=== PATIENT | male | born 1965 | race African-American/Black ===

== ENCOUNTER 2017-12-13 11:52 | Emergency (ER) | payer OTHER ==
[2017-12-13 12:04] VITALS: RESP 18; TEMP 98.6
--- NOTE | 2017-12-13 12:29 | ED ---
Wound/Laceration HPI - General Chief Complaint: Wound/Laceration Stated Complaint: 3 foot fall resulting in head laceration Source: patient, RN notes reviewed, old records reviewed Mode of arrival: ambulatory Limitations: no limitations - History of Present Illness Initial Comments: This patient's 52-year-old male presents emergency department today with chief complaint of falling from a 3 foot scaffolding bladder. Patient reports that the pain was not appropriately placed within the ladder and caused the leg to fall. Patient reports he fell backward and hit his head on a metal wrench. Patient states that he has a laceration over the back of the scalp. They initially poured peroxide over the area and wrapped with a pressure dressing. Patient states he had no loss of consciousness. He states his neck is mildly sore but denies any significant pain or tenderness over the spine. Patient states that he was able to ambulate without difficulty. Patient states that his tetanus vaccine is up-to-date. He denies any peripheral paresthesias, nausea, vomiting, chest pain, shortness of breath, abdominal pain, or back pain. - Related Data Home Medications Medication Instructions Recorded Confirmed No Known Home Medications 12/13/17 12/13/17 Allergies Allergy/AdvReac Type Severity Reaction Status Date / Time No Known Allergies Allergy Verified 12/13/17 12:04 Review of Systems ROS Statement: Those systems with pertinent positive or pertinent negative responses have been documented in the HPI. ROS Other: All systems not noted in ROS Statement are negative. Past Medical History Past Medical History: No Reported History History of Any Multi-Drug Resistant Organisms: None Reported Additional Past Surgical History / Comment(s): rt elbow surgery Past Psychological History: No Psychological Hx Reported Smoking Status: Current every day smoker Past Alcohol Use History: Daily, Heavy Past Drug Use History: Marijuana General Exam - General Exam Comments Initial Comments: This patient's a 52-year-old male. Alert and oriented. No significant distress. Limitations: no limitations General appearance: alert, in no apparent distress Head exam: Present: normocephalic, normal inspection. Absent: atraumatic ( Patient has a 3 cm hematoma over the occipital scalp. It is L-shaped laceration measuring approximately 3 cm. Bleeding well controlled.) Eye exam: Present: normal appearance, PERRL, EOMI. Absent: scleral icterus, conjunctival injection, periorbital swelling ENT exam: Present: normal exam, mucous membranes moist, TM's normal bilaterally Neck exam: Present: normal inspection. Absent: tenderness, meningismus, lymphadenopathy Respiratory exam: Present: normal lung sounds bilaterally. Absent: respiratory distress, wheezes, rales, rhonchi, stridor Cardiovascular Exam: Present: regular rate GI/Abdominal exam: Present: soft, normal bowel sounds. Absent: distended, tenderness, guarding, rebound, rigid Extremities exam: Present: normal inspection, full ROM, normal capillary refill. Absent: tenderness, pedal edema, joint swelling, calf tenderness Back exam: Present: normal inspection Neurological exam: Present: alert, oriented X3, CN II-XII intact Psychiatric exam: Present: normal affect, normal mood Skin exam: Present: warm, dry, intact, normal color. Absent: rash Course Vital Signs 12/13/17 12:01 Temperature 98.6 F Pulse Rate 96 Respiratory 18 Rate Blood Pressure 152/100 O2 Sat by Pulse 97 Oximetry Procedures - Laceration Laceration #1 Site: scalp Size (cm): 3 Description: irregular Depth: simple, single layer Anesthetic Used: lidocaine 1% Anesthesia Technique: local infiltration Amount (mls): 3 Pre-repair: wound explored, irrigated extensively Type of Sutures: other (diogo) Size of Sutures: other Number of Sutures: 3 Patient Tolerated Procedure: well, no complications Medical Decision Making - Medical Decision Making 52-year-old male presents emergency Department after falling off of scaffolding. Patient ports to 3 feet high and hit the back of his head on a bench. Patient is not on blood thinners. He has a irregular 3cm laceration over the back the scalp. Bleeding is well-controlled. CAT scan of the brain and neck was completed and negative for any acute process. Patient is alert and oriented. Patient is wound was cleaned. 3 diogo placed to close laceration. I discussed head injury instructions. Discussed return parameters including altered mental status, vomiting or any other abnormal symptoms. Patient understands treatment plan will comply. Return parameters were discussed. - Radiology Data Radiology results: report reviewed No acute intracranial abnormality. Mild chronic sinus mucosal disease noted. No acute osseous lesion. Is under changes noted. Disposition Clinical Impression: Scalp laceration, Concussion Disposition: HOME SELF-CARE Condition: Good Instructions: Concussion (ED), Staple Care (ED) Additional Instructions: Please return to the emergency room in 7 to 10 days to have diogo removed. Please leave wound covered for the first 24-48 hours and then leave open to air after that time. Please use clean soap and water to clean the suture area to prevent scabbing over the top of your diogo. Please watch for any signs of infection which may include but not limited to increased pain, swelling, redness , fever or chills. Please return to the emergency room if any signs of infection do occur. Please return to the emergency room for any other concerns or complications. Is patient prescribed a controlled substance at d/c from ED?: No Referrals: Patience Robb MD [Primary Care Provider] - 1-2 days Time of Disposition: 13:13
--- NOTE | 2017-12-13 12:53 | CT ---
EXAMINATION TYPE: CT brain sarath forrester DATE OF EXAM: 12/13/2017 COMPARISON: NONE HISTORY: posterior head laceration after fall CT DLP: 1744 mGycm Automated exposure control for dose reduction was used. TECHNIQUE: CT scan of the head and cervical spine are performed without contrast. FINDINGS: BRAIN: Central structures are midline. There is no evidence of hydrocephalus. No acute focal lesion, mass effect or midline shift is seen. I do not see evidence of intracranial blood. There is mucoperiosteal thickening involving the left maxillary sinus. The remainder the paranasal si nuses and mastoids are clear. There is some underaeration of the right-sided mastoids. The bony vero rium is intact. IMPRESSION: 1. NO ACUTE INTRACRANIAL ABNORMALITY. 2. MILD, CHRONIC SINUS MUCOSAL DISEASE. CERVICAL SPINE: Visualized portions of the lungs are clear. Prevertebral soft tissues are normal. There is straightening of the normal cervical lordosis. Alignment is maintained. Atlantoaxial relatio nships are normal. There is degenerative disc disease and hypertrophic spondylosis throughout the cervical spine with re lative sparing of C2-3. There is uncovertebral joint disease most marked at C5-6. The facets are reas onably well-maintained. No discal protrusion is seen. No fracture is evident. IMPRESSION: 1. NO ACUTE OSSEOUS LESION. 2. DEGENERATIVE CHANGE.
[2017-12-13] MEDS ORDERED: IBUPROFEN 600 MG STARTER PACK 4 TAB BTL PO STA (13:11)
[2017-12-13] MEDS ORDERED: ACETAMINOPHEN TAB 500 MG TAB PO STA (13:11)
[2017-12-13 13:27] VITALS: BP 158/88; PULSE 91
== END 2017-12-13 13:25 | disposition home or self-care (01) ==
LOC: EC 11:52
DX: S06.0X0A Concussion without loss of consciousness, initial encounter (principal); S01.01XA Laceration without foreign body of scalp, initial encounter; F17.200 Nicotine dependence, unspecified, uncomplicated; W11.XXXA Fall on and from ladder, initial encounter; W22.8XXA Striking against or struck by other objects, initial encounter; Y92.89 Other specified places as the place of occurrence of the external cause
CPT/HCPCS: 12002; 70450; 72125; 99284

== ENCOUNTER 2021-11-28 15:01 | Observation (INO) | payer OTHER ==
[2021-11-28 15:42] LABS: Basophils # (A) 0.1 k/uL (0-0.2); Basophils % (A) 1 %; Eosinophils # (A) 0.3 k/uL (0-0.7); Eosinophils % (A) 4 %; HCT 44.1 % (39.0-53.0); HGB 14.1 gm/dL (13.0-17.5); Lymphocytes # (A) 1.6 k/uL (1.0-4.8); Lymphocytes % (A) 26 %; MCH 29.8 pg (25.0-35.0); MCV 93.2 fL (80.0-100.0); Mean Platelet Volume 7.2; Monocytes # (A) 0.3 k/uL (0-1.0); Monocytes % (A) 6 %; Neutrophils # (A) 3.7 k/uL (1.3-7.7); Neutrophils % (A) 62 %; Platelet Count 310 k/uL (150-450); RBC 4.73 m/uL (4.30-5.90); RDW 13.8 % (11.5-15.5)
[2021-11-28 15:55] LABS: Albumin 3.7 g/dL (3.5-5.0); Calcium 9.7 mg/dL (8.4-10.2); INR 0.9 (<1.2); Partial Thromboplastin Time 22.7 sec (22.0-30.0); Potassium 4.3 mmol/L (3.5-5.1); Prothrombin Time 10.3 sec (9.0-12.0); Total Bilirubin 0.2 mg/dL (0.2-1.3); Total Protein 6.2 g/dL (6.3-8.2)
--- NOTE | 2021-11-28 15:56 | XR ---
EXAMINATION TYPE: XR chest 2V DATE OF EXAM: 11/28/2021 COMPARISON: NONE TECHNIQUE: PA and lateral views submitted. HISTORY: Chest pain FINDINGS: The lungs are clear and there is no pneumothorax, pleural effusion, or focal pneumonia. Heart size normal. Degenerative changes spine. Mild hyperinflation. Arthropathy of the shoulders. IMPRESSION: 1. No acute process. Correlate for COPD.
--- NOTE | 2021-11-28 20:02 | ED ---
Chest Pain HPI - General Chief Complaint: Chest Pain Stated Complaint: Chest Pain Time Seen by Provider: 11/28/21 20:40 Source: patient Mode of arrival: ambulatory Limitations: no limitations - History of Present Illness Initial Comments: 56-year-old male with past medical history of daily alcohol use, tobacco abuse presents emergency room for chest pain and muscle spasms. Patient states that he has been having right-sided chest wall pain with cramping and numbness that goes into both of his upper extremities into his back. His any previous history of cardiac disease. Does admit to alcohol and tobacco abuse. He has never had a cardiac workup. He denies fevers, chills or cough. No ripping or tearing sensation to his back. He denies any numbness or tingling into his legs. No other alleviating, precipitating or modifying factors - Related Data Home Medications Medication Instructions Recorded Confirmed amLODIPine [Norvasc] 10 mg PO DAILY 11/28/21 11/28/21 Previous Rx's Medication Instructions Recorded Cyclobenzaprine [Flexeril] 5 mg PO TID PRN #30 tablet 11/30/21 Allergies Allergy/AdvReac Type Severity Reaction Status Date / Time No Known Allergies Allergy Verified 11/28/21 20:05 Review of Systems ROS Statement: Those systems with pertinent positive or pertinent negative responses have been documented in the HPI. ROS Other: All systems not noted in ROS Statement are negative. EKG Findings - EKG Comments: EKG Findings:: EKG demonstrates a sinus rhythm with a ventricular rate of 83. DC interval 162. QRS 84. QTC 377. No acute ST segment elevations or depressions Past Medical History Past Medical History: No Reported History History of Any Multi-Drug Resistant Organisms: None Reported Additional Past Surgical History / Comment(s): rt elbow surgery Past Psychological History: No Psychological Hx Reported Smoking Status: Current every day smoker Past Alcohol Use History: Daily, Heavy Past Drug Use History: Marijuana - Past Family History Father Family Medical History: Myocardial Infarction ([place]) Additional Family Medical History / Comment(s): Father of a [place] at the age of 62 or 63 yrs. Mother Family Medical History: Cancer Additional Family Medical History / Comment(s): Mother at 57yrs from a rare type cancer. Family Family Medical History: Coronary Artery Disease (CAD) General Exam Limitations: no limitations General appearance: alert, in no apparent distress Head exam: Present: atraumatic, normocephalic, normal inspection Eye exam: Present: normal appearance, PERRL, EOMI. Absent: scleral icterus, conjunctival injection, periorbital swelling ENT exam: Present: normal exam, mucous membranes moist Neck exam: Present: normal inspection. Absent: tenderness, meningismus, lymphadenopathy Respiratory exam: Present: normal lung sounds bilaterally. Absent: respiratory distress, wheezes, rales, rhonchi, stridor Cardiovascular Exam: Present: regular rate, normal rhythm, normal heart sounds. Absent: systolic murmur, diastolic murmur, rubs, gallop, clicks GI/Abdominal exam: Present: soft, normal bowel sounds. Absent: distended, tenderness, guarding, rebound, rigid Extremities exam: Present: normal inspection, full ROM, normal capillary refill. Absent: tenderness, pedal edema, joint swelling, calf tenderness Back exam: Present: normal inspection Neurological exam: Present: alert, oriented X3, CN II-XII intact Psychiatric exam: Present: normal affect, normal mood Skin exam: Present: warm, dry, intact, normal color. Absent: rash Course Vital Signs 11/28/21 11/28/21 11/28/21 15:07 19:54 21:00 Temperature 98.5 F Pulse Rate 95 83 63 Respiratory 20 16 16 Rate Blood Pressure 134/81 157/103 164/83 O2 Sat by Pulse 99 98 98 Oximetry 11/28/21 11/29/21 11/29/21 23:00 01:00 09:18 Temperature 98.4 F Pulse Rate 83 64 66 Respiratory 16 16 18 Rate Blood Pressure 118/70 113/78 O2 Sat by Pulse 98 98 Oximetry 11/29/21 11/29/21 11/29/21 09:22 10:00 10:28 Temperature 98.1 F Pulse Rate 71 71 64 Respiratory 18 18 18 Rate Blood Pressure 114/62 114/62 134/74 O2 Sat by Pulse 96 98 99 Oximetry 11/29/21 11/29/21 11/29/21 13:00 15:00 16:00 Temperature 98.6 F 98.4 F Pulse Rate 90 66 68 Respiratory 18 18 18 Rate Blood Pressure 124/80 103/50 107/88 O2 Sat by Pulse 99 98 100 Oximetry Chest Pain MDM - MDM Upon arrival patient is placed into room 2. Thorough history and physical exam was performed. IV access was established laboratory studies were conducted. 12-lead EKG was performed. Results are discussed with the patient. Did recommend overnight observation for which the patient did agree to. Called and spoke with Dr. Bueno who agreed to admit the patient. Disposition Clinical Impression: Chest pain Disposition: ADMITTED IP TO THIS HOSP Condition: Stable Is patient prescribed a controlled substance at d/c from ED?: No Time of Disposition: 20:47 Decision to Admit Reason: Admit from EC Decision Date: 11/28/21 Decision Time: 20:47
[2021-11-28] MEDS ORDERED: ASPIRIN 81 MG PO STA (20:46)
[2021-11-28] MEDS ORDERED: NALOXONE 0.4 MG/ML 1 ML VIAL IV PRN (20:47)
[2021-11-29] MEDS ORDERED: IPRATROPIUM-ALBUTEROL 3 ML NEB INHALATION PRN (04:21)
--- NOTE | 2021-11-29 04:28 | P.HPIM ---
History of Present Illness H&P Date: 11/28/21 Chief Complaint: chest pain 56 year old male with no significant past medical history patient comes in with complaint of right sided chest pain assciated with cramping of his bilateral upper extremities and right side of his chest , no associated profuse sweating, dizziness, nausea or vomiting, no difficulty breathing, no recent URI, no abd pain, no changes in urinary or bowel habits. he has never had cardiac workup . he is concerned now as this has been going on for couple weeks, and becoming more frequent episodes , sometimes happens at work where he has to stop. he works in hanging [employer]. he denies any recent travel or hospital stay , he has poor OP follow up , and has no past medical history he admits to tobacco smoking, marijuana and alcohol . he reports strong family history of CAD. Review of Systems Pertinent positives as noted in HPI. All other systems were reviewed and are negative Past Medical History Past Medical History: No Reported History History of Any Multi-Drug Resistant Organisms: None Reported Additional Past Surgical History / Comment(s): rt elbow surgery Past Psychological History: No Psychological Hx Reported Smoking Status: Current every day smoker Past Alcohol Use History: Daily, Heavy Past Drug Use History: Marijuana - Past Family History Family Family Medical History: Coronary Artery Disease (CAD) Medications and Allergies Home Medications Medication Instructions Recorded Confirmed Type amLODIPine [Norvasc] 10 mg PO DAILY 11/28/21 11/28/21 History Allergies Allergy/AdvReac Type Severity Reaction Status Date / Time No Known Allergies Allergy Verified 11/28/21 20:05 Physical Exam Vitals: Vital Signs Temp Pulse Resp BP Pulse Ox 11/28/21 19:54 83 16 157/103 98 11/28/21 15:07 98.5 F 95 20 134/81 99 Intake and Output 11/28/21 11/28/21 11/28/21 06:59 14:59 22:59 Other: Weight 112.037 kg Constitutional: No acute distress, conversant, pleasant Eyes: Anicteric sclerae, moist conjunctiva, Pupils equal round reactive to light ENMT: NC/AT Oropharynx clear, no erythema, or exudates Neck: Supple, no masses, or JVD No carotid bruits No thyromegaly Lungs: good breath sounds bilaterally with end-expiratory wheezing Clear to percussion Normal respiratory effort, no accessory muscle use Cardiovascular: Heart regular in rate and rhythm, No murmurs, gallops, or rubs No peripheral edema Abdominal: Soft Nontender, no guarding, rebound or rigidity Abdomen moving with respiration Normoactive bowel sounds No hepatomegaly, No splenomegaly No palpable mass No abdominal wall hernia noted Skin: Normal temperature, tone, texture, turgor No induration No subcutaneous nodules No rash, lesions No ulcers Extremities: No digital cyanosis No clubbing Pedal pulses intact and symmetrical Radial pulses intact and symmetrical No calf tenderness Psychiatric: Alert and oriented to person, place and time Appropriate affect fair judgement Neuro Muscles Strength 5/5 in all 4 extremities Sensation to light touch grossly present throughout Cranial nerves II-XII grossly intact No focal sensory deficits Lymphatics: no palpable cervical or supraclavicular , or inguinal lymph nodes Results CBC & Chem 7: 11/28/21 15:30 11/28/21 15:30 Labs: Abnormal Lab Results - Last 24 Hours (Table) 11/28/21 Range/Units 15:30 Creatinine 1.64 H (0.66-1.25) mg/dL Glucose 108 H (74-99) mg/dL Total Protein 6.2 L (6.3-8.2) g/dL Assessment and Plan Assessment: atypical chest pain rule out ACS EKG no acute changes CXR no acute pathology trops negative X2 traffic monitor specialist monitor vital signs ASA, cardiology consult A1c, lipid panel , TSH pain control Acute kidney injury Most likely secondary to dehydration IV fluid hydration and normal saline Monitor renal function Monitor urine output frequent muscle cramps Check magnesium level other electrolytes were unremarkable except for acute kidney injury suspected some component of clinical COPD with history of smoking DuoNeb's when necessary as needed for shortness of breath full code Heparin subcu 3 times a day for DVT prophylaxis
[2021-11-29] MEDS: HEPARIN SODIUM,PORCINE/PF 5,000 UNIT/0.5 ML SYRINGE SQ SCH ×3 (08:10→23:26)
[2021-11-29] MEDS: amLODIPine 10 MG TAB PO SCH (08:10)
[2021-11-29] MEDS: ASPIRIN 81 MG PO SCH (08:11)
[2021-11-29] MEDS: SODIUM CHLORIDE 0.9% 1,000 ML IV SCH ×3 (08:59→23:26)
[2021-11-29 09:09] LABS: Basophils # (A) 0.05 X 10*3/uL (0.00-0.10); Basophils % (A) 0.8 %; Eosinophils # (A) 0.29 X 10*3/uL (0.04-0.35); Eosinophils % (A) 4.4 %; HCT 42.1 % (39.6-50.0); Immature Grans, Automated 1.1 %; Lymphocytes # (A) 2.22 X 10*3/uL (0.90-5.00); Lymphocytes % (A) 33.5 %; MCH 30.7 pg (27.0-32.0); MCHC 33.3 g/dL (32.0-37.0); MCV 92.3 fL (80.0-97.0); Mean Platelet Volume 9.3 fL (9.5-12.2); Monocytes # (A) 0.51 X 10*3/uL (0.20-1.00); Monocytes % (A) 7.7 %; NRBC Per 100 WBC 0 /100 WBCS (0.0-0.0); Neutrophils # (A) 3.48 X 10*3/uL (1.80-7.70); Neutrophils % (A) 52.5 %; Platelet Count 320 X 10*3/uL (140-440); RBC 4.56 X 10*6/uL (4.40-5.60); RDW 13.9 % (11.5-14.5); WBC 6.62 X 10*3/uL (4.50-10.00)
[2021-11-29 09:30] LABS: African American GFR (CKD) 63.7 (60.0-200.0); Blood Urea Nitrogen 18.2 mg/dL (9.0-27.0); Calcium 9.3 mg/dL (8.7-10.3); Carbon Dioxide 25.7 mmol/L (20.0-27.5); Chloride 104 mmol/L (96-109); Glucose 125 mg/dL (70-110); Magnesium 2.1 mg/dL (1.5-2.4); Potassium 4.6 mmol/L (3.5-5.5); Sodium 140 mmol/L (135-145)
[2021-11-29 09:31] LABS: Chol/HDL Ratio 3.53 Ratio; LDL Cholesterol,Calculated 108.5 mg/dL (0.0-131.0)
--- NOTE | 2021-11-29 10:20 | P.CRDCN ---
History of Present Illness Consult date: 11/29/21 History of present illness: Patient is a 48-year-old gentleman with a known history of hypertension and alcohol he drinks half a pint and a few beers every other day. We have been consulted to see the patient for chest pain. 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 He presented to the emergency room with complaints of chest pain relieved his chest pain radiated from the right side of his chest into his right arm. He denies any was associated with increased shortness of breath, profound sweating, nausea, vomiting, dizziness, near syncope, or edema. His troponin has been negative 3. His EKG shows sinus rhythm. His chest x-ray correlated for COPD. Labs reviewed 320 sodium 140 potassium 4.6 creatinine initially 1.64 repeat 1.4, B1 18 AST 38 ALT 36 cholesterol 182 triglycerides 110 LDL 108 HDL 51 TSH 1.4 2-D echocardiogram revealed a normal LV function with mild right ventricular dilation and mildly dilated aortic root Blood pressure is maintained on amlodipine 10 mg Recommended patient undergo stress test Review of Systems REVIEW OF SYSTEMS At the time of my exam: CONSTITUTIONAL: Denies fever or chills. EYES: Negative for vision changes ENT: Negative for hearing loss CARDIOVASCULAR: Complains of chest Denies shortness of breath, diaphoresis, orthopnea, PND or palpitations. VASCULAR: Denies edema RESPIRATORY: Denies cough. GASTROINTESTINAL: Denies abdominal pain, diarrhea, constipation, nausea or vomiting. MUSCULOSKELETAL: Denies myalgias. NEUROLOGIC: Denies numbness, tingling, headache or weakness. ENDOCRINE: Denies fatigue, weight change, polydipsia or polyurina. GENITOURINARY: Denies burning, hematuria or urgency with micturation. HEMATOLOGIC: Denies history of anemia or bleeding. DERMATOLOGY: Denies rash or skin sores PSYCH: Negative for depression or hallucinations. Past Medical History Past Medical History: Hypertension History of Any Multi-Drug Resistant Organisms: None Reported Past Surgical History: Orthopedic Surgery Additional Past Surgical History / Comment(s): rt elbow surgery for tennis elbos Past Anesthesia/Blood Transfusion Reactions: No Reported Reaction Smoking Status: Current every day smoker - Past Family History Father Family Medical History: Myocardial Infarction ([place]) Additional Family Medical History / Comment(s): Father of a [place] at the age of 62 or 63 yrs. Mother Family Medical History: Cancer Additional Family Medical History / Comment(s): Mother at 57yrs from a rare type cancer. Family Family Medical History: Coronary Artery Disease (CAD) Medications and Allergies Home Medications Medication Instructions Recorded Confirmed Type amLODIPine [Norvasc] 10 mg PO DAILY 11/28/21 11/28/21 History Allergies Allergy/AdvReac Type Severity Reaction Status Date / Time No Known Allergies Allergy Verified 11/28/21 20:05 Physical Exam Vitals: Vital Signs Temp Pulse Resp BP Pulse Ox 11/29/21 09:22 98.1 F 71 18 114/62 96 11/29/21 09:18 98.4 F 66 18 113/78 98 11/29/21 01:00 64 16 118/70 98 11/28/21 23:00 83 16 11/28/21 21:00 63 16 164/83 98 11/28/21 19:54 83 16 157/103 98 11/28/21 15:07 98.5 F 95 20 134/81 99 Intake and Output 11/28/21 11/29/21 11/29/21 22:59 06:59 14:59 Other: Weight 112.037 kg 112.037 kg PHYSICAL EXAMINATION VITAL SIGNS: Reviewed General: The patient is awake and alert, in no distress, and does not appear acutely ill. Skin: Skin is warm and dry and no rashes or lesions are noted. Eye: Pupils are equal, round and reactive to light, extra-ocular movements are intact; there is normal conjunctiva bilaterally. Ears, nose, mouth and throat: There are moist mucous membranes and no oral lesions. Neck: The neck is supple, there is no tenderness or JVD. Cardiovascular: There is irregular regular rate and rhythm. No murmur, rub or gallop is appreciated. Respiratory: Lungs are clear to auscultation, respirations are non-labored, breath sounds are equal. Gastrointestinal: Soft, non-distended, non-tender abdomen without masses or organomegaly noted. There is no rebound or guarding present. Bowel sounds are unremarkable. Back: There is no tenderness to palpation in the midline. There is no obvious deformity. Musculoskeletal: Normal ROM, no tenderness, There is no pedal edema. There is no calf tenderness or swelling. Extremities: no edema Vascular: Femoral pulse is normal. Posterior tibial pulses are normal .Dorsalis pedis is palpable. Neurological: CN II-XII intact. There are no obvious motor or sensory deficits. Speech is normal. Psychiatric: Cooperative, appropriate mood & affect, normal judgment Results 11/29/21 06:37 11/29/21 06:37 Cardiac Enzymes 11/28/21 11/28/21 11/28/21 Range/Units 15:30 15:30 20:58 AST 38 (17-59) U/L Troponin I <0.012 <0.012 (0.000-0.034) ng/mL 11/28/21 Range/Units 23:04 AST (17-59) U/L Troponin I <0.012 (0.000-0.034) ng/mL Coagulation 11/28/21 Range/Units 15:30 PT 10.3 (9.0-12.0) sec APTT 22.7 (22.0-30.0) sec Lipids 11/29/21 Range/Units 06:37 Triglycerides 110.00 (0.00-149.00) mg/dL Cholesterol 182.00 (0.00-200.00) mg/dL HDL Cholesterol 51.50 (40.00-60.00) mg/dL Cholesterol/HDL Ratio 3.53 Ratio CBC 11/28/21 11/29/21 Range/Units 15:30 06:37 WBC 6.0 6.62 (3.8-10.6) k/uL RBC 4.73 4.56 (4.30-5.90) m/uL Hgb 14.1 14.0 (13.0-17.5) gm/dL Hct 44.1 42.1 (39.0-53.0) % Plt Count 310 320 (150-450) k/uL Comprehensive Metabolic Panel 11/28/21 11/29/21 Range/Units 15:30 06:37 Sodium 139 140 (137-145) mmol/L Potassium 4.3 4.6 (3.5-5.1) mmol/L Chloride 104 104 (98-107) mmol/L Carbon Dioxide 23 25.7 (22-30) mmol/L BUN 18 18.2 (9-20) mg/dL Creatinine 1.64 H 1.4 (0.66-1.25) mg/dL Glucose 108 H 125 H (74-99) mg/dL Calcium 9.7 9.3 (8.4-10.2) mg/dL AST 38 (17-59) U/L ALT 36 (4-49) U/L Alkaline Phosphatase 70 (38-126) U/L Total Protein 6.2 L (6.3-8.2) g/dL Albumin 3.7 (3.5-5.0) g/dL Current Medications Generic Name Dose Route Start Last Admin Trade Name Freq PRN Reason Stop Dose Admin Albuterol/Ipratropium 3 ml 11/29/21 04:21 Ipratropium-Albuterol 3 Ml Neb INHALATION RT-QID PRN Shortness Of Breath Or Wheezing Amlodipine Besylate 10 mg 11/29/21 09:00 11/29/21 08:10 Amlodipine 10 Mg Tab PO 10 mg DAILY DOUGLAS Administration Aspirin 81 mg 11/29/21 09:00 11/29/21 08:11 Aspirin 81 Mg PO 81 mg DAILY DOUGLAS Administration Heparin Sodium (Porcine) 5,000 unit 11/29/21 08:00 11/29/21 08:10 Heparin Sodium,Porcine/Pf 5,000 Unit/0.5 Ml Syringe SQ 5,000 unit Q8HR DOUGLAS Administration Sodium Chloride 1,000 mls @ 130 mls/hr 11/29/21 04:30 11/29/21 08:59 Saline 0.9% IV Not Given .[id number] DOUGLAS Naloxone HCl 0.2 mg 11/28/21 20:47 Naloxone 0.4 Mg/Ml 1 Ml Vial IV Q2M PRN Opioid Reversal Intake and Output 11/28/21 11/29/21 11/29/21 22:59 06:59 14:59 Other: Weight 112.037 kg 112.037 kg Patient Weight 11/30/21 06:59 Weight 112.037 kg 11/29/21 06:37 11/29/21 06:37 Assessment and Plan Assessment: Chest pain rule out ACS Hypertension Alcohol abuse Plan: Patient will undergo a stress echo tomorrow morning Nothing by mouth at midnight echocardiogram obtained and reviewed follow kidney function Continue with current cardiac medications Further recommendations based on clinical course The above impression and plan of care have been discussed and directed by the signing physician. Key Gonzales, nurse practitioner, acting as scribe for signing physician.
--- NOTE | 2021-11-29 11:09 | CA ---
Transthoracic Echo Report Name: George Camacho Age: 56 Gender: M : 1965 Exam Date: 11/29/2021 08:15 Exam Location: [place] [facility] Ht (in): 73 Wt (lb): 247 Ordering Physician: Torie De Guzman DO Attending/Referring Phys: [id number], Gab Cellar Supervisor Maureen Weiss, RD Procedure CPT: Indications: Chest Pain Cardiac Hx: Technical Quality: Good Contrast 1: Total Dose (mL): Contrast 2: Total Dose (mL): MEASUREMENTS (Male / Female) Normal Values 2D ECHO LV Diastolic Diameter PLAX 4.5 cm 4.2 - 5.9 / 3.9 - 5.3 cm LV Systolic Diameter PLAX 3.0 cm IVS Diastolic Thickness 1.3 cm 0.6 - 1.0 / 0.6 - 0.9 cm LVPW Diastolic Thickness 1.3 cm 0.6 - 1.0 / 0.6 - 0.9 cm LV Relative Wall Thickness 0.6 RV Internal Dim ED PLAX 3.9 cm LA Systolic Diameter LX 3.2 cm 3.0 - 4.0 / 2.7 - 3.8 cm M-MODE Aortic Root Diameter MM 3.9 cm MV E Point Septal Separation 0.5 cm AV Cusp Separation MM 2.6 cm DOPPLER AV Peak Velocity 105.1 cm/s AV Peak Gradient 4.4 mmHg MV Area PHT 2.0 cm??? Mitral E Point Velocity 63.4 cm/s Mitral A Point Velocity 73.6 cm/s Mitral E to A Ratio 0.9 MV Deceleration Time 387.0 ms MV E' Velocity 8.3 cm/s Mitral E to MV E' Ratio 7.6 FINDINGS Left Ventricle Left ventricular ejection fraction is estimated at 60-65 %. Left ventricular cavity size normal. Mild concentric left ventricular hypertrophy. Right Ventricle Moderate right ventricular dilatation. No TR unable to estimate the right ventricular systolic pressure. Right Atrium Normal right atrial size. Left Atrium Normal left atrial size. No evidence for an atrial septal defect. Mitral Valve Structurally normal mitral valve. No mitral stenosis, regurgitation or prolapse. Aortic Valve Trileaflet aortic valve. No aortic valve stenosis or regurgitation. Tricuspid Valve Structurally normal tricuspid valve. Pulmonic Valve Mild pulmonic regurgitation. Pericardium Normal pericardium. No pericardial effusion. Aorta Mild aortic dilatation at the level of the sinuses of valsalva (root). CONCLUSIONS Normal LV systolic function mild right ventricular dilatation mildly dilated aortic root Previewed by: Dr. Rodriguez Slaughter MD (Electronically Signed) Final Date: 29 November 2021 11:08
[2021-11-29] MEDS ORDERED: CYCLOBENZAPRINE 10 MG TAB PO STA (11:48)
--- NOTE | 2021-11-29 13:50 | P.PN ---
Progress Note - Text Progress Note Date: 11/29/21 Patient was seen and examined. No acute events overnight. Patient reports complete resolution of his chest pain. He reports cramping in both hands and feet intermittently. General: [non toxic], [no distress], [appears at stated age] Derm: [warm], [dry] Head: [atraumatic], [normocephalic], [symmetric] Eyes: [EOMI], [no lid lag], [anicteric sclera] Mouth: [no lip lesion], [mucus membranes moist] Cardiovascular: [S1S2 reg], [no murmur] Lungs: [CTA bilateral], [no rhonchi, no rales] , [no accessory muscle use] Ext: [no gross muscle atrophy], [no edema], [no contractures] Neuro: [no focal neuro deficits] Psych: [Alert], [oriented], [appropriate affect] #Chest pain #Muscular cramping #Hypertension #Obesity Resolved: Acute kidney injury Acute coronary syndrome has been ruled out. Echocardiogram shows EF of 60-65% with mild concentric LVH. Plans for dobutamine stress test tomorrow. Continue telemetry monitoring. Cardiology on board. Magnesium level within normal limits. Unknown etiology. Continue IV hydration for 1 more day. Flexeril as needed. Restart amlodipine. Monitor vitals, adjust medications if necessary. Patient will benefit from a structured weight loss program. Heparin for DVT prophylaxis. Patient would like to be FULL CODE. Anticipated DC home tomorrow.
[2021-11-30] MEDS ORDERED: DOBUTamine DRIP for NUC MED 500 MG in DEXTROSE/WATER 1 250ML.BAG IV PRN (07:00)
[2021-11-30 08:01] VITALS: BP 129/87; PULSE 54; RESP 18; TEMP 98
[2021-11-30] MEDS: ASPIRIN 81 MG PO SCH (08:34)
[2021-11-30] MEDS: amLODIPine 10 MG TAB PO SCH (08:34)
[2021-11-30] MEDS: HEPARIN SODIUM,PORCINE/PF 5,000 UNIT/0.5 ML SYRINGE SQ SCH (08:34)
--- NOTE | 2021-11-30 10:22 | CA ---
Stress Echo Report George Camacho Age: 56 Gender: M : 1965 Exam Date: 11/30/2021 09:05 Exam Location: [place] [facility] Ht (in): 73 Wt (lb): 247 Ordering Physician: Key Gonzales Referring Physician: LY,, Primer Powder Blender Wet: Dahiana Ellington RDCS Technologist Procedure CPT: Indication: Chest Pain ICD-9 Codes: Rhythm: Patient History: Cardiac Medications: SEE CHART Medications in past 24 hours: Contrast: Stress Results Protocol: [place] Total dose(mL): Exercise Duration (min:sec): Max ST Depression (mm): Angina Score: Vasques Score: METS: 8.5 Resting HR: 83 Resting BP: 136 / 76 Peak HR: 153 Peak BP: 214 / 108 Max Predicted HR: 162 94 % Max Predicted HR Target HR: 138 Double Product: [id number] Stress Summary: BP Response: Reason for Termination: Cardiac Symptoms: ECG Analysis Resting ECG: Normal sinus rhythm normal axis normal intervals Stress ECG: Negative stress test by EKG criteria Arrhythmia: Echo Analysis Resting Echo: Normal left and a size wall motion systolic function Peak Echo Analysis: Normal hyperdynamic response pulse of myocardium noted MEASUREMENTS (Male/Female) Normal Values CONCLUSIONS About average exercise tolerance Negative stress test by EKG criteria Negative stress echo Dr. Rodriguez Slaughter MD (Electronically Signed) Final Date: 30 November 2021 10:21
--- NOTE | 2021-11-30 10:28 | P.DS ---
Providers Date of admission: 11/28/21 20:47 Expected date of discharge: 11/30/21 Attending physician: Nereida Bueno MD Consults: 11/28/21 20:47 Consult Physician Urgent Consulting Provider: [facility] Consult Reason/Comments: chest pain Do you want consulting provider notified?: Yes Primary care physician: Stated None Hospital Course: 56 year old male with no significant past medical history Patient comes in with complaint of right sided chest pain associated with cramping of his bilateral upper extremities and right side of his chest, no associated profuse sweating, dizziness, nausea or vomiting, no difficulty breathing, no recent URI, no abd pain, no changes in urinary or bowel habits. He has never had cardiac workup. He is concerned now as this has been going on for couple weeks, and becoming more frequent episodes, sometimes happens at work where he has to stop. He works in hanging [employer]. He denies any recent travel or hospital stay, he has poor OP follow up, and has no past medical history. He admits to tobacco smoking, marijuana and alcohol. He reports strong family history of CAD. Troponins were trended and ACS was ruled out. Lipid panel is within normal limits. Echocardiogram was done which showed EF of 60-65% with mild concentric LVH. Cardiology was consulted and recommended dobutamine stress test. Stress test was negative. He did have an acute kidney injury that resolved with IV hydration. Magnesium level was checked with regard to his muscular cramping. Magnesium level was within normal limits. Trial of Flexeril was attempted. Patient was seen and examined on 11/30/2021. He reports no chest pain. He reports no muscular cramping. States that he is back to baseline. General: [non toxic], [no distress], [appears at stated age] Derm: [warm], [dry] Head: [atraumatic], [normocephalic], [symmetric] Eyes: [EOMI], [no lid lag], [anicteric sclera] Mouth: [no lip lesion], [mucus membranes moist] Cardiovascular: [S1S2 reg], [no murmur] Lungs: [CTA bilateral], [no rhonchi, no rales] , [no accessory muscle use] Ext: [no gross muscle atrophy], [no edema], [no contractures] Neuro: [no focal neuro deficits] Psych: [Alert], [oriented], [appropriate affect] Discharge Diagnosis: #Chest pain #Muscular cramping #Hypertension #Obesity Resolved: Acute kidney injury Pertinent Studies: Chest x-ray EKG Echocardiogram Dobutamine stress test Patient Condition at Discharge: Stable Plan - Discharge Summary Discharge Rx Participant: No New Discharge Prescriptions: New Cyclobenzaprine [Flexeril] 5 mg PO TID PRN #30 tablet PRN Reason: Muscle Spasm Continue amLODIPine [Norvasc] 10 mg PO DAILY Discharge Medication List amLODIPine [Norvasc] 10 mg PO DAILY 11/28/21 [History] Cyclobenzaprine [Flexeril] 5 mg PO TID PRN #30 tablet 11/30/21 [Rx] Follow up Appointment(s)/Referral(s): None,Stated [Primary Care Provider] - 1-2 days
--- NOTE | 2021-11-30 21:35 | PN ---
PROGRESS NOTE SUBJECTIVE: A 56-year-old gentleman with history of hypertension, who is admitted to hospital with chest pain. Myocardial infarction is ruled out. This morning, he is doing well and is free of symptoms. OBJECTIVE: GENERAL: Comfortable at rest. VITAL SIGNS: Stable. CHEST: Reveals good air entry bilaterally. HEART: Reveals first and second heart sounds. No gallop. No murmur. EXTREMITIES: Did not reveal any edema. Peripheral pulses are felt. IMAGING STUDIES: On an echocardiogram I performed, he has normal LV systolic function and mildly dilated aortic root. A stress echo was negative for ischemia. ASSESSMENT AND PLAN: Chest pain. Myocardial infarction is rule out. The patient is stable for discharge. Arrange followup with primary care physician. MMODL / IJN: [id number] /
== END 2021-11-30 11:37 | disposition home or self-care (01) ==
LOC: EC 15:01 → 6NMEDSUR 20:47
PROVIDERS: ADMIT Internal Medicine; ATTEND Internal Medicine
DX: R07.89 Other chest pain (principal); N17.9 Acute kidney failure, unspecified; F17.200 Nicotine dependence, unspecified, uncomplicated; I10 Essential (primary) hypertension; I77.810 Thoracic aortic ectasia; F10.10 Alcohol abuse, uncomplicated; E66.9 Obesity, unspecified; F12.90 Cannabis use, unspecified, uncomplicated; Z79.899 Other long term (current) drug therapy; Z82.49 Family history of ischemic heart disease and other diseases of the circulatory system; Z80.8 Family history of malignant neoplasm of other organs or systems; Z68.32 Body mass index [BMI] 32.0-32.9, adult
CPT/HCPCS: 96361; 96372 ×3; 99285; 36415; 93005; 93306; 80061; 80053; 80048; 84443; 83735; 84484; 85025 ×2; 85610; 85730; 83036; 71046; G0378 ×3; C8930; J1250; J1644 ×2; 93351; 96360